=== PATIENT | male | born 1960 | race African-American/Black ===

== ENCOUNTER 2021-12-24 19:51 | Inpatient (IN) | payer OTHER ==
[~2021-12-24] VITALS: Ht 152.4 cm; Wt 81.6 kg
[2021-12-24 21:20] LABS: HEMOGLOBIN. 13.2 g/dL (14.0-18.0); MEAN CORPUSCULAR HEMOGLOBIN 36.6 pg (28.0-32.0); MEAN CORPUSCULAR VOLUME 108.4 fL (80.0-94.0); PLATELET 231 x1000/uL (130-400); RED CELL DISTRIBUTION WIDTH 14.1 % (11.6-14.6)
[2021-12-24 21:25] LABS: CHLORIDE 107 mEq/L (98-107)
[2021-12-24 21:29] LABS: ETHANOL BLOOD 133 mg/dL
[2021-12-24 22:02] LABS: PLATELET ESTIMATE NORMAL
[2021-12-24] MEDS ORDERED: SODIUM CHLORIDE 0.9% 1,000 ML IV ONE (22:30)
[2021-12-25] MEDS ORDERED: SODIUM CHLORIDE 0.9% 1,000 ML IV ONE (01:00)
[2021-12-25] MEDS ORDERED: DOCUSATE SODIUM 100MG CAPSULE PO PRN (01:15)
[2021-12-25] MEDS ORDERED: ACETAMINOPHEN 325MG TABLET PO PRN (01:15)
[2021-12-25] MEDS ORDERED: IPRATROPIUM/ALBUTEROL 0.5-3(2.5)MG/3ML NEB HHN PRN (01:15)
[2021-12-25] MEDS ORDERED: CLONIDINE 0.1MG TABLET PO PRN (01:15)
[2021-12-25] MEDS ORDERED: GUAIFENESIN 200MG/10ML SUGAR FREE UDC PO PRN (01:15)
[2021-12-25] MEDS ORDERED: HYDRALAZINE 20MG/ML VIAL IV PRN (01:15)
[2021-12-25] MEDS ORDERED: DEXTROSE 50% WATER 50ML SYRINGE IV PRN (01:15)
[2021-12-25] MEDS ORDERED: ONDANSETRON HCL 4MG/2ML INJ IV PRN (01:15)
[2021-12-25] MEDS ORDERED: FOLIC ACID 1 MG, THIAMINE HCL 100 MG, MVI, ADULT NO.1 10 ML in DEXTROSE 5% WATER 1,000 ML IV ONE ×4 (01:15)
[2021-12-25 05:18] LABS: HEMATOCRIT. 35.8 % (42.0-52.0); HEMOGLOBIN. 12.1 g/dL (14.0-18.0); MEAN CORPUSCULAR HEMOGLOBIN 36.4 pg (28.0-32.0); MEAN CORPUSCULAR VOLUME 107.7 fL (80.0-94.0); MEAN PLATELET VOLUME 8.5 fl (7.4-10.4); PLATELET 192 x1000/uL (130-400); RED BLOOD CELL COUNT 3.32 mill/uL (4.7-6.1); RED CELL DISTRIBUTION WIDTH 14.2 % (11.6-14.6)
[2021-12-25 05:25] LABS: CHLORIDE 111 mEq/L (98-107)
[2021-12-25 07:35] LABS: NUCLEATED RED BLOOD CELLS 1 /100 WBC; PLATELET ESTIMATE NORMAL
[2021-12-25] MEDS: THIAMINE HCL 100MG TABLET PO SCH (09:00)
[2021-12-25 12:00] VITALS: BP 156/105
[2021-12-25 12:05] VITALS: BP 156/105
[2021-12-25] MEDS ORDERED: LORAZEPAM 2MG/ML CPJ IV PRN (15:45)
[2021-12-25 16:00] VITALS: BP 148/108
[2021-12-25] MEDS ORDERED: QUET300T2 MT (16:32)
[2021-12-25 20:00] VITALS: BP 141/89
[2021-12-25] MEDS: QUETIAPINE FUMARATE 50MG TABLET PO SCH (20:52)
[2021-12-26] VITALS: BP 145/99
[2021-12-26 04:00] VITALS: BP 115/83
[2021-12-26 08:00] VITALS: BP 132/84
[2021-12-26] MEDS: QUETIAPINE FUMARATE 50MG TABLET PO SCH ×2 (09:12→21:30)
[2021-12-26] MEDS: THIAMINE HCL 100MG TABLET PO SCH (09:12)
[2021-12-26 09:32] LABS: HEMATOCRIT. 37.8 % (42.0-52.0); HEMOGLOBIN. 12.5 g/dL (14.0-18.0); MEAN PLATELET VOLUME 8.2 fl (7.4-10.4); PLATELET 211 x1000/uL (130-400); RED BLOOD CELL COUNT 3.47 mill/uL (4.7-6.1); RED CELL DISTRIBUTION WIDTH 13.9 % (11.6-14.6)
[2021-12-26 09:41] LABS: CHLORIDE 106 mEq/L (98-107)
[2021-12-26 12:00] VITALS: BP 111/75
[2021-12-26 13:59] LABS: PLATELET ESTIMATE NORMAL
[2021-12-26] MEDS: CHLORDIAZEPOXIDE 25MG CAPSULE PO SCH ×2 (15:11→21:29)
[2021-12-26 16:00] VITALS: BP 121/85
[2021-12-26 20:00] VITALS: BP 125/82
[2021-12-27] VITALS: BP 113/80
[2021-12-27 04:00] VITALS: BP 117/77
[2021-12-27 07:06] LABS: CHLORIDE 111 mEq/L (98-107)
[2021-12-27 07:17] LABS: HEMATOCRIT. 35.1 % (42.0-52.0); HEMOGLOBIN. 11.8 g/dL (14.0-18.0); MEAN CORPUSCULAR HEMOGLOBIN 36.7 pg (28.0-32.0); MEAN CORPUSCULAR VOLUME 108.8 fL (80.0-94.0); MEAN PLATELET VOLUME 8.1 fl (7.4-10.4); PLATELET 210 x1000/uL (130-400); RED BLOOD CELL COUNT 3.22 mill/uL (4.7-6.1); RED CELL DISTRIBUTION WIDTH 13.8 % (11.6-14.6)
[2021-12-27 07:37] VITALS: BP 140/98
[2021-12-27] MEDS: THIAMINE HCL 100MG TABLET PO SCH (08:38)
[2021-12-27] MEDS: QUETIAPINE FUMARATE 50MG TABLET PO SCH (08:39)
[2021-12-27] MEDS: CHLORDIAZEPOXIDE 25MG CAPSULE PO SCH (08:39)
[2021-12-27] MEDS ORDERED: L25 PO (09:37)
[2021-12-27 10:13] VITALS: BP 138/88
[2021-12-27 12:00] VITALS: BP 132/80
[2021-12-27 13:35] LABS: PLATELET ESTIMATE NORMAL
== END 2021-12-27 14:16 | disposition home or self-care (01) | DRG 74 ==
LOC: ER 19:51 → 6WST 12-25 01:31 → EDBEDREQSVC 12-25 08:58 → ENRESERV 12-25 09:40
PROVIDERS: ADMIT Internal Medicine; ATTEND Internal Medicine
DX: G90.8 Other disorders of autonomic nervous system (principal); E87.2 Acidosis; E16.2 Hypoglycemia, unspecified; Y90.6 Blood alcohol level of 120-199 mg/100 ml
CPT/HCPCS: 36415; 71045; 80048; 80053; 80320; 83605; 83880; 84484; 85025; 93005; 93306; 99285; J3411; J3490; J7030; J7070; G0480

== ENCOUNTER 2022-01-11 15:06 | Emergency (ER) | payer SELFPAY ==
[~2022-01-11] VITALS: Ht 177.8 cm; Wt 85.0 kg
[~2022-01-11 15:06] MED LIST: L25 PO; QUET300T2 MT
[2022-01-11 16:40] LABS: BASOPHILS % 0.6 % (0.0-2.0); EOSINOPHILS % 2.5 % (0.0-5.0); HEMATOCRIT. 40.7 % (42.0-52.0); HEMOGLOBIN. 13.5 g/dL (14.0-18.0); LYMPHOCYTES % 41.2 % (20.0-50.0); MEAN CORPUSCULAR HEMOGLOBIN 35.2 pg (28.0-32.0); MEAN PLATELET VOLUME 8.1 fl (7.4-10.4); MONOCYTES % 11.4 % (2.0-8.0); NEUTROPHILS % 44.3 % (40.0-76.0); PLATELET 215 x1000/uL (130-400); RED BLOOD CELL COUNT 3.83 mill/uL (4.7-6.1); RED CELL DISTRIBUTION WIDTH 14.5 % (11.6-14.6)
[2022-01-11 16:43] LABS: CHLORIDE 112 mEq/L (98-107)
[2022-01-11 17:23] LABS: ETHANOL BLOOD 275 mg/dL
[2022-01-11 18:19] VITALS: BP 149/65
== END 2022-01-11 18:21 | disposition home or self-care (01) ==
LOC: ER 15:06
DX: R55 Syncope and collapse (principal); F10.229 Alcohol dependence with intoxication, unspecified; Y90.8 Blood alcohol level of 240 mg/100 ml or more
CPT/HCPCS: 36415; 80053; 80320; 85025; 99284; G0480